=== PATIENT | female | born 1970 | race African-American/Black ===

== ENCOUNTER 2016-10-18 23:34 | Inpatient (IN) | payer MEDICAID, OTHER ==
[~2016-10-18] VITALS: Ht 167.6 cm; Wt 44.6 kg
[2016-10-19 00:41] LABS: Basophils # (auto) 0.1 uL; Basophils % (auto) 0.7 % (0.0-2.0); Eosinophils # (auto) 0.2 uL; Eosinophils % (auto) 2.1 % (0.0-7.0); Hematocrit 26.2 % (36.0-46.0); Hemoglobin 8.7 g/dL (12.2-16.2); Lymphocytes # (auto) 1.3 uL; Lymphocytes % (auto) 16.7 % (10.0-50.0); Mean Corpuscular Hemoglobin 29.6 pg (28.0-32.0); Mean Corpuscular Hgb Conc. 33.1 g/dL (32.0-36.0); Mean Corpuscular Volume 89.4 fL (80.0-100.0); Mean Platelet Volume 7.9 fL (7.4-10.4); Monocytes # (auto) 0.6 uL; Monocytes % (auto) 7.5 % (0.0-12.0); Neutrophils # (auto) 5.8 uL; Platelet Count (auto) 298 10^3/uL (140-450); Red Cell Distribution Width 16.4 % (11.6-16.0)
[2016-10-19] MEDS ORDERED: LORazepam 2MG/ML-1ML VIAL IV ONE (00:45)
[2016-10-19 00:54] LABS: Partial Thromboplastin Time 29.2 sec (22.64-33.71)
[2016-10-19 00:58] LABS: INR 1.28 (0.9-1.15); Prothrombin Time 13.8 sec (9.37-12.3)
[2016-10-19 01:00] LABS: BUN/Creatinine Ratio 5.7
[2016-10-19 01:01] LABS: Bilirubin, Total 0.5 mg/dL (0.2-1.0); Calcium 5.9 mg/dL (8.5-10.1); Magnesium 2.6 mg/dL (1.6-2.6); Total Protein 7.6 g/dL (6.4-8.2)
[2016-10-19 01:03] LABS: Potassium 5.8 mmol/L (3.5-5.1)
[2016-10-19 01:04] LABS: Temperature: 21.9 C (20.0-25.0)
[2016-10-19] MEDS ORDERED: hydrALAZINE HCL 20 MG/ML VL IV ONE (01:15)
[2016-10-19] MEDS ORDERED: ENALAPRILAT 1.25 MG/ML-1ML VIAL IV ONE (01:15)
[2016-10-19] MEDS ORDERED: CALCIUM CHL 100MG/ML 1,000 MG in D5W 5% 100 ML IV ONE (04:15)
[2016-10-19] MEDS ORDERED: InsuLIN REG 1unit/0.01ml Soln (100units/ml) IV ONE (04:15)
[2016-10-19] MEDS ORDERED: DEXTROSE (50%) 50ML SYRG IV ONE ×3 (04:15→09:10)
[2016-10-19] MEDS ORDERED: CALCIUM GLUC 4.65 MEQ/10ML IV ONE (05:31)
[2016-10-19] MEDS ORDERED: DEXTROSE 50% SYRINGE 50 ML IV ONE (05:32)
[2016-10-19] MEDS ORDERED: CALCIUM CHLOR(10%) 100MG/ML 10ML SYRINGE IV ONE (05:43)
[2016-10-19] MEDS ORDERED: DEXTROSE (50%) 50ML SYRG IV PRN (06:15)
[2016-10-19] MEDS ORDERED: HYDROcodone-ACET 5/325MG TAB PO PRN (06:15)
[2016-10-19] MEDS ORDERED: NITROGLYCERIN 0.4 MG SL TAB SL PRN (06:15)
[2016-10-19] MEDS ORDERED: MORPHINE SULF INJ 2 MG/ML SYRINGE 1ML IV PRN (06:15)
[2016-10-19] MEDS ORDERED: TEMAZEPAM 15 MG CAP PO PRN (06:15)
[2016-10-19] MEDS ORDERED: ACETAMINOPHEN 325 MG TAB PO PRN (06:15)
[2016-10-19] MEDS ORDERED: ONDANSETRON HCL 4 MG/2 ML VIAL IV PRN (06:15)
[2016-10-19] MEDS: SEVELAMER 800 MG TAB PO SCH ×4 (08:00→18:09)
[2016-10-19] MEDS: DEXTROSE 10% 1,000 ML IV SCH ×2 (09:56→19:15)
[2016-10-19] MEDS ORDERED: FAMOTIDINE 20 MG TAB PO SCH (10:00)
[2016-10-19] MEDS: ASPirin 81 mg TAB PO SCH (10:12)
[2016-10-19] MEDS: ENOXAPARIN SOD 30 MG/0.3 ML SYRINGE SC SCH (10:12)
[2016-10-19] MEDS: FAMOTIDINE 20 MG TAB PO SCH (10:12)
[2016-10-19] MEDS: NIFEdipine ER 30 MG TAB PO SCH (10:12)
[2016-10-19] MEDS: ACCU-CHEK COMFORT CURVE STRIP VI SCH ×3 (12:00→23:55)
[2016-10-19] MEDS: InsuLIN REG 1unit/0.01ml Soln (100units/ml) SC SCH ×2 (12:00→17:34)
[2016-10-19 17:00] VITALS: BP 165/99
[2016-10-19 22:00] VITALS: BP 148/98
[2016-10-20 05:00] VITALS: BP 147/113
[2016-10-20] MEDS: InsuLIN REG 1unit/0.01ml Soln (100units/ml) SC SCH ×4 (06:00→17:59)
[2016-10-20] MEDS: ACCU-CHEK COMFORT CURVE STRIP VI SCH ×3 (06:13→17:59)
[2016-10-20] MEDS ORDERED: DEXTROSE 10% 1,000 ML IV SCH (07:30)
[2016-10-20 07:39] LABS: Basophils # (auto) 0 uL; Basophils % (auto) 0.4 % (0.0-2.0); Eosinophils # (auto) 0.3 uL; Eosinophils % (auto) 3.5 % (0.0-7.0); Hematocrit 27.9 % (36.0-46.0); Hemoglobin 9.2 g/dL (12.2-16.2); Lymphocytes # (auto) 1.1 uL; Lymphocytes % (auto) 11.1 % (10.0-50.0); Mean Corpuscular Hemoglobin 29.6 pg (28.0-32.0); Mean Corpuscular Hgb Conc. 33.1 g/dL (32.0-36.0); Mean Corpuscular Volume 89.4 fL (80.0-100.0); Mean Platelet Volume 7.3 fL (7.4-10.4); Monocytes # (auto) 0.6 uL; Monocytes % (auto) 6.7 % (0.0-12.0); Neutrophils # (auto) 7.4 uL; Neutrophils % (auto) 78.3 % (37.0-80.0); Platelet Count (auto) 277 10^3/uL (140-450); White Blood Cell 9.4 10^3/uL (4.4-10.8)
[2016-10-20] MEDS: SEVELAMER 800 MG TAB PO SCH ×3 (08:17→17:58)
[2016-10-20 08:31] LABS: Albumin 2.7 g/dL (3.4-5.0); BUN/Creatinine Ratio 6.4; Bilirubin, Total 0.4 mg/dL (0.2-1.0); Calcium 6.1 mg/dL (8.5-10.1); Phosphorus 6.2 mg/dL (2.5-4.90); Total Protein 6.9 g/dL (6.4-8.2)
[2016-10-20 08:34] VITALS: BP 158/106
[2016-10-20 08:36] LABS: Potassium 5.7 mmol/L (3.5-5.1)
[2016-10-20] MEDS: FAMOTIDINE 20 MG TAB PO SCH (09:52)
[2016-10-20] MEDS: ENOXAPARIN SOD 30 MG/0.3 ML SYRINGE SC SCH (09:52)
[2016-10-20] MEDS: ASPirin 81 mg TAB PO SCH (09:52)
[2016-10-20] MEDS ORDERED: EPOETIN ALFA 10,000 UNIT/1 ML VIAL IV ONE (12:00)
[2016-10-20] MEDS ORDERED: HEPARIN SODIUM (PORCINE) 5000 UNITS/ML 1ML VIAL IV ONE (12:00)
[2016-10-20 13:00] VITALS: BP 165/120
[2016-10-20] MEDS: NIFEdipine ER 30 MG TAB PO SCH (14:17)
[2016-10-20 16:25] VITALS: BP 153/109
[2016-10-20 22:00] VITALS: BP 140/89
[2016-10-21] MEDS: ACCU-CHEK COMFORT CURVE STRIP VI SCH ×4 (00:19→18:25)
[2016-10-21] MEDS: InsuLIN REG 1unit/0.01ml Soln (100units/ml) SC SCH ×4 (06:00→18:00)
[2016-10-21] MEDS: SEVELAMER 800 MG TAB PO SCH ×3 (08:18→18:25)
[2016-10-21] MEDS: cloNIDine HCL 0.1 MG TAB PO PRN (08:18)
[2016-10-21 08:36] VITALS: BP 173/110
[2016-10-21 08:46] LABS: BUN/Creatinine Ratio 5.8; Calcium 6.8 mg/dL (8.5-10.1); Potassium 4.7 mmol/L (3.5-5.1)
[2016-10-21] MEDS: FAMOTIDINE 20 MG TAB PO SCH (09:24)
[2016-10-21] MEDS: ASPirin 81 mg TAB PO SCH (09:24)
[2016-10-21] MEDS: NIFEdipine ER 30 MG TAB PO SCH (09:25)
[2016-10-21] MEDS: ENOXAPARIN SOD 30 MG/0.3 ML SYRINGE SC SCH ×2 (09:29→16:59)
[2016-10-21 12:49] VITALS: BP 174/107
[2016-10-21 16:45] VITALS: BP 157/118
[2016-10-21 22:00] VITALS: BP 160/112
[2016-10-21] MEDS: SODIUM CHLOR 0.9% PF (SALINE LOCK) 10ML VIAL IV SCH ×2 (22:00→22:04)
[2016-10-21] MEDS: ATORVASTATIN 20 MG TAB PO SCH (22:04)
[2016-10-21] MEDS: METOPROLOL TARTRATE 50 MG TAB PO SCH (22:05)
[2016-10-22] MEDS: ACCU-CHEK COMFORT CURVE STRIP VI SCH ×4 (00:13→17:56)
[2016-10-22 05:30] VITALS: BP 159/106
[2016-10-22] MEDS: SODIUM CHLOR 0.9% PF (SALINE LOCK) 10ML VIAL IV SCH ×3 (06:00→21:27)
[2016-10-22] MEDS: InsuLIN REG 1unit/0.01ml Soln (100units/ml) SC SCH ×4 (06:00→17:56)
[2016-10-22 08:25] LABS: Cholesterol 127 mg/dL (< 200); HDL Cholesterol 43 mg/dL (40-59); LDL Cholesterol 79 mg/dL (< 100); Triglycerides 79 mg/dL (< 150)
[2016-10-22 08:38] VITALS: BP 170/109
[2016-10-22] MEDS: ASPirin 81 mg TAB PO SCH (10:00)
[2016-10-22] MEDS: ENOXAPARIN SOD 30 MG/0.3 ML SYRINGE SC SCH (10:00)
[2016-10-22] MEDS ORDERED: ENOXAPARIN SOD 40 MG/0.4 ML SYRINGE SC SCH (10:00)
[2016-10-22] MEDS: METOPROLOL TARTRATE 50 MG TAB PO SCH ×2 (10:01→21:27)
[2016-10-22] MEDS: NIFEdipine ER 30 MG TAB PO SCH (10:01)
[2016-10-22] MEDS: FAMOTIDINE 20 MG TAB PO SCH (10:01)
[2016-10-22] MEDS: SEVELAMER 800 MG TAB PO SCH ×3 (10:03→17:54)
[2016-10-22] MEDS: cloNIDine HCL 0.1 MG TAB PO PRN (14:02)
[2016-10-22 15:52] VITALS: BP 188/110
[2016-10-22] MEDS ORDERED: cloNIDine HCL 0.1 MG TAB PO ONE (16:15)
[2016-10-22] MEDS ORDERED: LOSARTAN POTASSIUM 50 MG TAB PO ONE (17:30)
[2016-10-22] MEDS: Novasource Renal 8 Ounces PO SCH (17:56)
[2016-10-22 18:53] VITALS: BP 188/104
[2016-10-22 21:04] VITALS: BP 156/99
[2016-10-22] MEDS: cloNIDine HCL 0.1 MG TAB PO SCH (21:27)
[2016-10-22] MEDS: ATORVASTATIN 20 MG TAB PO SCH (21:27)
[2016-10-23] MEDS: ACCU-CHEK COMFORT CURVE STRIP VI SCH ×4 (00:08→17:58)
[2016-10-23 05:14] VITALS: BP 156/105
[2016-10-23] MEDS: SODIUM CHLOR 0.9% PF (SALINE LOCK) 10ML VIAL IV SCH ×3 (05:36→22:14)
[2016-10-23] MEDS: InsuLIN REG 1unit/0.01ml Soln (100units/ml) SC SCH ×3 (05:58→12:00)
[2016-10-23 08:00] VITALS: BP 160/102
[2016-10-23] MEDS: Novasource Renal 8 Ounces PO SCH ×3 (08:00→17:33)
[2016-10-23 09:00] VITALS: BP 168/118
[2016-10-23] MEDS: FAMOTIDINE 20 MG TAB PO SCH (09:29)
[2016-10-23] MEDS: ASPirin 81 mg TAB PO SCH (09:30)
[2016-10-23] MEDS: cloNIDine HCL 0.1 MG TAB PO SCH ×2 (09:30→22:14)
[2016-10-23] MEDS: METOPROLOL TARTRATE 50 MG TAB PO SCH ×2 (09:31→22:13)
[2016-10-23] MEDS: SEVELAMER 800 MG TAB PO SCH ×3 (09:31→17:57)
[2016-10-23] MEDS: NIFEdipine ER 30 MG TAB PO SCH (09:31)
[2016-10-23] MEDS: LOSARTAN POTASSIUM 50 MG TAB PO SCH (09:31)
[2016-10-23] MEDS: ENOXAPARIN SOD 30 MG/0.3 ML SYRINGE SC SCH (09:33)
[2016-10-23 17:20] VITALS: BP 153/106
[2016-10-23 20:00] VITALS: BP 154/97
[2016-10-23 22:00] VITALS: BP 154/97
[2016-10-23] MEDS: ATORVASTATIN 20 MG TAB PO SCH (22:13)
[2016-10-24] MEDS: SODIUM CHLOR 0.9% PF (SALINE LOCK) 10ML VIAL IV SCH ×3 (06:00→21:39)
[2016-10-24 08:00] VITALS: BP 156/109
[2016-10-24] MEDS: Novasource Renal 8 Ounces PO SCH ×3 (08:00→16:34)
[2016-10-24 09:00] VITALS: BP 156/109
[2016-10-24] MEDS: ENOXAPARIN SOD 30 MG/0.3 ML SYRINGE SC SCH (10:00)
[2016-10-24] MEDS: SEVELAMER 800 MG TAB PO SCH ×3 (10:10→17:28)
[2016-10-24] MEDS: LOSARTAN POTASSIUM 50 MG TAB PO SCH (10:11)
[2016-10-24] MEDS: ASPirin 81 mg TAB PO SCH (10:11)
[2016-10-24] MEDS: METOPROLOL TARTRATE 50 MG TAB PO SCH ×2 (10:11→21:35)
[2016-10-24] MEDS: cloNIDine HCL 0.1 MG TAB PO SCH ×2 (10:11→21:36)
[2016-10-24] MEDS: FAMOTIDINE 20 MG TAB PO SCH (10:12)
[2016-10-24] MEDS: NIFEdipine ER 30 MG TAB PO SCH (10:12)
[2016-10-24 13:00] VITALS: BP 157/116
[2016-10-24 17:00] VITALS: BP 151/105
[2016-10-24 20:00] VITALS: BP 151/103
[2016-10-24 21:30] VITALS: BP 151/103
[2016-10-24] MEDS: ATORVASTATIN 20 MG TAB PO SCH (21:34)
[2016-10-25] VITALS (8 sets, daily range): BP systolic 145–160; BP diastolic 97–111
[2016-10-25] MEDS: SODIUM CHLOR 0.9% PF (SALINE LOCK) 10ML VIAL IV SCH ×3 (06:02→21:46)
[2016-10-25] MEDS: SEVELAMER 800 MG TAB PO SCH ×3 (08:09→18:41)
[2016-10-25] MEDS: Novasource Renal 8 Ounces PO SCH ×3 (08:34→18:41)
[2016-10-25] MEDS: ASPirin 81 mg TAB PO SCH (09:50)
[2016-10-25] MEDS: FAMOTIDINE 20 MG TAB PO SCH (09:51)
[2016-10-25] MEDS: LOSARTAN POTASSIUM 50 MG TAB PO SCH (09:51)
[2016-10-25] MEDS: NIFEdipine ER 30 MG TAB PO SCH (09:51)
[2016-10-25] MEDS: METOPROLOL TARTRATE 50 MG TAB PO SCH ×2 (09:51→21:46)
[2016-10-25] MEDS: cloNIDine HCL 0.1 MG TAB PO SCH ×2 (09:52→21:46)
[2016-10-25] MEDS: ENOXAPARIN SOD 30 MG/0.3 ML SYRINGE SC SCH (09:52)
[2016-10-25] MEDS ORDERED: SODIUM CHL 0.9% 1000 ML BAG XX ONE (12:45)
[2016-10-25] MEDS ORDERED: EPOETIN ALFA 10,000 UNIT/1 ML VIAL IV ONE (12:45)
[2016-10-25] MEDS: ATORVASTATIN 20 MG TAB PO SCH (21:45)
[2016-10-26 04:47] VITALS: BP 134/90
[2016-10-26] MEDS: SODIUM CHLOR 0.9% PF (SALINE LOCK) 10ML VIAL IV SCH ×3 (06:00→22:00)
[2016-10-26 08:00] VITALS: BP 156/108
[2016-10-26] MEDS: Novasource Renal 8 Ounces PO SCH ×3 (08:00→18:00)
[2016-10-26] MEDS: SEVELAMER 800 MG TAB PO SCH ×3 (08:39→17:55)
[2016-10-26 08:58] VITALS: BP 156/108
[2016-10-26] MEDS: LOSARTAN POTASSIUM 50 MG TAB PO SCH (09:42)
[2016-10-26] MEDS: cloNIDine HCL 0.1 MG TAB PO SCH ×2 (09:43→22:11)
[2016-10-26] MEDS: NIFEdipine ER 30 MG TAB PO SCH (09:43)
[2016-10-26] MEDS: METOPROLOL TARTRATE 50 MG TAB PO SCH ×2 (09:44→22:11)
[2016-10-26] MEDS: ASPirin 81 mg TAB PO SCH (09:44)
[2016-10-26] MEDS: ENOXAPARIN SOD 30 MG/0.3 ML SYRINGE SC SCH (09:44)
[2016-10-26] MEDS: FAMOTIDINE 20 MG TAB PO SCH (09:44)
[2016-10-26 13:27] VITALS: BP 153/105
[2016-10-26 17:00] VITALS: BP 160/106
[2016-10-26 22:02] VITALS: BP 151/100
[2016-10-26] MEDS: ATORVASTATIN 20 MG TAB PO SCH (22:11)
[2016-10-27 05:15] VITALS: BP 148/114
[2016-10-27] MEDS: SODIUM CHLOR 0.9% PF (SALINE LOCK) 10ML VIAL IV SCH ×2 (06:00→14:00)
[2016-10-27 08:00] VITALS: BP 132/96
[2016-10-27] MEDS: SEVELAMER 800 MG TAB PO SCH ×3 (08:00→18:29)
[2016-10-27] MEDS: Novasource Renal 8 Ounces PO SCH ×3 (08:00→18:00)
[2016-10-27 08:54] VITALS: BP 132/96
[2016-10-27] MEDS: NIFEdipine ER 30 MG TAB PO SCH (10:27)
[2016-10-27] MEDS: FAMOTIDINE 20 MG TAB PO SCH (10:27)
[2016-10-27] MEDS: ASPirin 81 mg TAB PO SCH (10:27)
[2016-10-27] MEDS: METOPROLOL TARTRATE 50 MG TAB PO SCH (10:28)
[2016-10-27] MEDS: cloNIDine HCL 0.1 MG TAB PO SCH (10:29)
[2016-10-27] MEDS: LOSARTAN POTASSIUM 50 MG TAB PO SCH (10:29)
[2016-10-27] MEDS: ENOXAPARIN SOD 30 MG/0.3 ML SYRINGE SC SCH (10:30)
[2016-10-27] MEDS ORDERED: TEMAZEPAM 15 MG CAP PO PRN (12:30)
[2016-10-27] MEDS ORDERED: HYDROcodone-ACET 5/325MG TAB PO PRN (12:30)
[2016-10-27 13:00] VITALS: BP 133/95
[2016-10-27 17:00] VITALS: BP 155/103
== END 2016-10-27 19:15 | disposition home or self-care (01) | DRG 291 ==
LOC: ER 23:38 → TELE 23:39 → TELE-EAST 10-19 08:36 → EAST 10-26 06:35
PROVIDERS: ADMIT Nurse Practitioner; ATTEND Internal Medicine Pulmonary Disease
PROC: 5A1D60Z (ICD-10-PCS; principal; 2016-10-20)
DX: I50.33 Acute on chronic diastolic (congestive) heart failure (principal); N18.6 End stage renal disease; G93.41 Metabolic encephalopathy; I13.2 Hypertensive heart and chronic kidney disease with heart failure and with stage 5 chronic kidney disease, or end stage renal disease; E87.2 Acidosis; E46 Unspecified protein-calorie malnutrition; J98.11 Atelectasis; Z68.1 Body mass index [BMI] 19.9 or less, adult; D63.1 Anemia in chronic kidney disease; E11.22 Type 2 diabetes mellitus with diabetic chronic kidney disease; F19.10 Other psychoactive substance abuse, uncomplicated; F17.210 Nicotine dependence, cigarettes, uncomplicated; E87.5 Hyperkalemia; E11.649 Type 2 diabetes mellitus with hypoglycemia without coma; Z99.2 Dependence on renal dialysis; Z91.19 Patient's noncompliance with other medical treatment and regimen; Z79.899 Other long term (current) drug therapy
CPT/HCPCS: 36415; 71010; 80048; 80053; 80061; 82947; 82962; 83735; 83880; 84100; 84484; 85025; 85610; 85730; 87340; 90935; 93005; 93306; 96374; 96375; 99291; J0885; J1642; J1815; J7060